=== PATIENT | male | born 2000 ===

== ENCOUNTER 2021-01-13 14:51 | Emergency (ER) | payer SELFPAY ==
[2021-01-14 11:39] LABS: SARS-CoV-2 PCR by NAA DETECTED (NotDetected)
== END 2021-01-13 17:15 | disposition home or self-care (01) ==
LOC: ERS 14:51
DX: U07.1 COVID-19 (principal)
CPT/HCPCS: 99284; U0003; U0005

== ENCOUNTER 2021-04-17 21:58 | Emergency (ER) | payer SELFPAY ==
[2021-04-17] MEDS ORDERED: Ketorolac Tromethamine 30 MG/ML VIAL ONE (23:51)
== END 2021-04-17 23:53 | disposition home or self-care (01) ==
LOC: ERS 21:58
DX: M62.838 Other muscle spasm (principal)
CPT/HCPCS: 96372; 99283; J1885